=== PATIENT | male | born 1995 | race Caucasian/White ===

== ENCOUNTER 2024-11-14 10:08 | Outpatient (CLI) | payer OTHER, SELFPAY ==
--- OUTSIDE RECORDS SUMMARY | 2024-11-14 11:17 | XMS_ITS | Referral Summary ---
Author Organization [address] Address [address] [place] [address] Care Team Providers Care Dye Boarding Machine Operator Name Role Phone No, Physician Primary Care Provider Encounters Date Type Department Care Team Description 10/12/2024 [facility]phone [facility] [address] [address] Deana Melgar NP Reschedule Appointment from Last 3 Months Allergies No known active allergies Medications amLODIPine (NORVASC) 10 mg tablet 4 Active chlorthalidone (HYGROTON) 25 mg tablet Take 1 tablet (25 mg total) by mouth daily with breakfast 4 Active rosuvastatin (CRESTOR) 10 mg tablet 4 Active albuterol HFA (PROVENTIL HFA,VENTOLIN HFA,PROAIR HFA) 90 mcg/actuation inhaler INHALE 2 PUFFS INTO THE LUNGS EVERY 4 HOURS NEEDED FOR WHEEZING OR SHORTNESS OF BREATH 4 Active montelukast (SINGULAIR) 10 mg tablet Take 1 tablet (10 mg total) by mouth daily 4 Active Active Problems No known active problems Social History Tobacco Use Types Packs/Day Years Used Date Smoking Tobacco: Every Day E-cigarettes Smokeless Tobacco: Never Tobacco Cessation:Ready to Q uit: Not Asked Sex and Gender Information Value Date Recorded Sex Assigned at Not on file 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 Gender Identity Not on file Sexual Orientation Not on file Last Filed Vital Signs Vital Sign Reading Time Taken Comments Blood Pressure 154/94 07/21/2024 7:02 PM FLATWORK FEEDER Pulse 100 07/21/2024 7:02 PM FLATWORK FEEDER Temperature 36.7 C (98 F) 07/21/2024 7:02 PM FLATWORK FEEDER Respiratory Rate 16 07/21/2024 7:02 PM FLATWORK FEEDER Oxygen Saturation 98% 07/21/2024 7:02 PM FLATWORK FEEDER Inhaled Oxygen Concentration - - Weight 127 kg (280 lb) 07/21/2024 7:02 PM FLATWORK FEEDER Height 177.8 cm (5' 10 ) 07/21/2024 7:02 PM FLATWORK FEEDER Body Mass Index 40.18 07/21/2024 7:02 PM FLATWORK FEEDER Plan of Treatment Not on file Insurance [facility] CHOICE PLUS Care Teams Dye Boarding Machine Operator Relationship Specialty Start Date End Date No, Physician PCP - General 05/10/24
--- OUTSIDE RECORDS SUMMARY | 2024-11-14 11:17 | XMS_ITS | Clinical Summary ---
Author Organization [address] Address [address] [place] [address] [place] [address] Care Team Providers Care Economic Development Coordinator Name Role Phone No, Physician Primary Care Provider [phone] Allergies No known active allergies Medications amLODIPine [...] Active Active Problems No known active problems Encounters Date Type Department Care Team Description 10/12/2024 Telephone [facility] [address] [place] [address] Deana Melgar NP Reschedule Appointment from Last 3 Months Medical History Medical History Date Comments Hypertension Asthma Hyperlipidemia Social History Tobacco Use Types Packs/Day Years Used Date Smoking Tobacco: Every Day E-cigarettes Smokeless Tobacco: Never Tobacco Cessation:Ready to Q uit: Not Asked Sex and Gender Information Value Date Recorded Sex Assigned at Not on file 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:52 PM HEAD OF VISUAL MERCHANDISING Gender Identity Not on file Sexual Orientation Not on file Obstetrics History Last Filed Vital Signs Vital Sign Reading Time Taken Comments Blood Pressure 154/94 07/21/2024 7:02 PM HEAD OF VISUAL MERCHANDISING Pulse 100 07/21/2024 7:02 PM HEAD OF VISUAL MERCHANDISING Temperature 36.7 C (98 F) 07/21/2024 7:02 PM HEAD OF VISUAL MERCHANDISING Respiratory Rate 16 07/21/2024 7:02 PM HEAD OF VISUAL MERCHANDISING Oxygen Saturation 98% 07/21/2024 7:02 PM HEAD OF VISUAL MERCHANDISING Inhaled Oxygen Concentration - - Weight 127 kg (280 lb) 07/21/2024 7:02 PM HEAD OF VISUAL MERCHANDISING Height 177.8 cm (5' 10 ) 07/21/2024 7:02 PM HEAD OF VISUAL MERCHANDISING Body Mass Index 40.18 07/21/2024 7:02 PM HEAD OF VISUAL MERCHANDISING Plan of Treatment Health Maintenance Due Date Last Done Comments Depression Screening 1995 Hepatitis C Screening 1995 HPV Vaccines (2 - Male 2-dos e series) 09/11/2010 03/11/2010 Regular Well Visit/Exam 18-64 2013 Pneumococcal vaccine <65 (1 of 2 - PCV) 2014 Influenza Vaccine (Season Ended) 2025 DTaP/Tdap/Td Vaccine (8 - Td or Tdap) 06/14/2028 06/14/2018, 03/11/2010, 06/23/2000, Additional history exists Hepatitis B Screening Completed 1995 , 1995, 1995, Additional history exists Varicella Vaccines Completed 03/11/2010, 01/20/1997 [place] [address] [facility] CHOICE PLUS Care Teams Economic Development Coordinator Relationship Specialty Start Date End Date No, Physician PCP - General 05/10/24
[2024-11-14 18:50] LABS: Basophils Absolute Auto 0.1 K/mm3 (0.0-0.1); Basophils Percent Auto 0.5 % (0.2-1.2); Eosinophils Absolute Auto 0.2 K/mm3 (0-0.3); Eosinophils Percent Auto 2.3 % (0-4.4); Hematocrit 47.1 % (42.0-52.0); Hemoglobin 16.1 g/dL (14.0-18.0); Immature Granulocyte Absolute 0.04 K/mm3 (0.00-0.031); Immature Granulocyte Percent A 0.4 % (0-0.5); Lymphocytes Absolute Auto 2.36 K/mm3 (0.9-3.2); Lymphocytes Percent Auto 25.1 % (18.3-44.2); Mean Corpuscular HGB Conc 34.2 g/dl (32-36); Mean Corpuscular Hemoglobin 28.4 pg (26-34); Mean Corpuscular Volume 83.2 fl (80-100); Monocytes Absolute Auto 0.7 K/mm3 (0.1-0.6); Monocytes Percent Auto 7.6 % (2.6-8.5); Neutrophils Percent Auto 64.1 % (45.5-73.1); Platelet Count Result 403 k/mm3 (150-375); Red Blood Count 5.66 M/mm3 (4.6-6.20); Red Cell Distribution Width 12.5 % (11.5-14.5); White Blood Count 9.4 K/mm3 (4.5-10.0)
[2024-11-14 19:54] LABS: Add Urine Microscopic? YES; Appearance Urine Clear (Clear); Bacteria Urine None Seen /hpf; Bilirubin Urine Negative (Negative); Blood Urine Negative (Negative); Color Urine Yellow (Yellow); Glucose Urine UA 3+ mg/dL (Negative); Hyaline Casts Urine Present /lpf; Ketones Urine Negative (Negative); Leukocyte Esterase Ur Negative LEU/UL (Negative); Nitrate Urine Negative (Negative); Protein Urine Trace mg/dL (Negative); RBC Urine 0-2 /hpf (0-2); Specific Grav Ur 1.027 (1.001-1.035); Squamous Epithelial Cell Urine None Seen /hpf (Few); Urobilinogen Urine 0.2 mg/dL (<2.0)
[2024-11-14 20:29] LABS: Alanine Aminotransferase 153 U/L (6-50); Albumin Level 4.8 g/dL (3.5-5.1); Alkaline Phosphatase 189 U/L (38-126); Anion Gap 15 mmol/L (4-12); Aspartate Amino Transferase 91 U/L (17-59); Bilirubin,Total 0.7 mg/dL (0.2-1.3); Blood Urea Nitrogen 13 mg/dL (9-20); Calcium 9.7 mg/dL (8.4-10.2); Carbon Dioxide 28 mmol/L (22-30); Chloride 96 mmol/L (98-107); Cholesterol 162 mg/dL (0-200); Estimated Glomerular Filt Rate > 60; Glucose 209 mg/dL (65-110); HDL Direct 37 mg/dL; Potassium 3.2 mmol/L (3.4-5.0); Sodium 139 mmol/L (137-145); Triglycerides 274 mg/dL (<150)
[2024-11-14 20:39] LABS: LDL Cholesterol Direct 76 mg/dL
[2024-11-14 21:44] LABS: Hemoglobin A1C 9.4 % (<5.7)
[2024-11-14 21:51] LABS: Creatinine Urine 168.3 mg/dL
[2024-11-14 22:04] LABS: MALB Creatinine Ratio 39.5 mg/g (0-30); Microalbumin Urine Random 66.5 mg/L (0-16.7)
== END 2024-11-14 10:09 | disposition home or self-care (01) ==
LOC: ANHBWCLAB 10:09
PROVIDERS: PCP Nurse Practitioner Adult Health; Visit Provider Nurse Practitioner Adult Health
DX: I10 Essential (primary) hypertension (principal); R32 Unspecified urinary incontinence
CPT/HCPCS: 36415; 80053; 80061; 81001; 82043; 82565; 83036; 83735; 85025

== ENCOUNTER 2024-11-21 08:09 | Outpatient (CLI) | payer OTHER, SELFPAY ==
--- NOTE | ~2024-11-21 | US_ITS ---
Limited Abdominal Sonogram: Real-time sonographic imaging of the right upper quadrant was performed. Clinical History: Abnormal serum enzyme levels Findings: The liver appears echogenic, with no evidence of mass lesion or bile duct dilatation. Main portal vein demonstrates normal direction of flow. The gallbladder is well distended, and appears no rmal with no evidence of gallstone or wall thickening. The common bile duct measures 4 mm. The visua lized pancreas, aorta, and IVC are unremarkable. Right kidney unremarkable. Impression: Diffuse fatty infiltration of the liver. Reviewed, dictated and finalized at location M. Impression: Diffuse fatty infiltration of the liver.
== END 2024-11-21 08:10 | disposition home or self-care (01) ==
LOC: MICIMG 08:09
PROVIDERS: PCP Nurse Practitioner Adult Health; Visit Provider Nurse Practitioner Adult Health
DX: R74.8 Abnormal levels of other serum enzymes (principal); K76.0 Fatty (change of) liver, not elsewhere classified
CPT/HCPCS: 76705

== ENCOUNTER 2024-11-28 11:04 | Outpatient (CLI) | payer OTHER, SELFPAY ==
--- OUTSIDE RECORDS SUMMARY | 2024-11-28 13:00 | XMS_ITS | Referral Summary ---
Author Organization [address] Address [address] [place] [address] Care Team Providers Care Natural Gas Trader Name Role Phone No, Physician Primary Care Provider [phone] Encounters Date Type Department Care Team Description 10/12/2024 Telephone [facility] [address] [address] Deana Melgar NP Reschedule Appointment [...] on file 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:52 PM SALES ORDER CLERK Gender Identity Not on file Sexual Orientation Not on file Last Filed Vital Signs Vital Sign Reading Time Taken Comments Blood Pressure 154/94 07/21/2024 7:02 PM SALES ORDER CLERK Pulse 100 07/21/2024 7:02 PM SALES ORDER CLERK Temperature 36.7 C (98 F) 07/21/2024 7:02 PM SALES ORDER CLERK Respiratory Rate 16 07/21/2024 7:02 PM SALES ORDER CLERK Oxygen Saturation 98% 07/21/2024 7:02 PM SALES ORDER CLERK Inhaled Oxygen Concentration - - Weight 127 kg (280 lb) 07/21/2024 7:02 PM SALES ORDER CLERK Height 177.8 cm (5' 10 ) 07/21/2024 7:02 PM SALES ORDER CLERK Body Mass Index 40.18 07/21/2024 7:02 PM SALES ORDER CLERK Plan of Treatment Not on file Insurance [facility] CHOICE PLUS [facility] HMO/PPO Address: [facility] [address] [place] [address] Care Teams Natural Gas Trader Relationship Specialty Start Date End Date No, Physician PCP - General 05/10/24
--- OUTSIDE RECORDS SUMMARY | 2024-11-28 13:00 | XMS_ITS | Clinical Summary ---
Author Organization [address] Address [address] [place] [address] [place] [address] Care Team Providers Care Rig Operator Name Role Phone No, Physician Primary Care Provider [phone] Allergies No known active allergies Medications amLODIPine [...] Care Team Description 10/12/2024 Telephone [facility] [address] [place] [address] Deana Melgar NP Reschedule Appointment from Last 3 Months Medical History Medical History Date Comments Hypertension Asthma Hyperlipidemia Social History Tobacco Use Types Packs/Day Years Used Date Smoking Tobacco: Every Day E-cigarettes Smokeless Tobacco: Never Tobacco Cessation:Ready to Q uit: Not Asked Sex and Gender Information Value Date Recorded Sex Assigned at Not on file 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:52 PM PLUCK TRIMMER Gender Identity Not on file Sexual Orientation Not on file Obstetrics History Last Filed Vital Signs Vital Sign Reading Time Taken Comments Blood Pressure 154/94 07/21/2024 7:02 PM PLUCK TRIMMER Pulse 100 07/21/2024 7:02 PM PLUCK TRIMMER Temperature 36.7 C (98 F) 07/21/2024 7:02 PM PLUCK TRIMMER Respiratory Rate 16 07/21/2024 7:02 PM PLUCK TRIMMER Oxygen Saturation 98% 07/21/2024 7:02 PM PLUCK TRIMMER Inhaled Oxygen Concentration - - Weight 127 kg (280 lb) 07/21/2024 7:02 PM PLUCK TRIMMER Height 177.8 cm (5' 10 ) 07/21/2024 7:02 PM PLUCK TRIMMER Body Mass Index 40.18 07/21/2024 7:02 PM PLUCK TRIMMER Plan of Treatment Health Maintenance Due Date [...] Varicella Vaccines Completed 03/11/2010, 01/20/1997 [place] [address] [facility] CHOICE PLUS [facility] HMO/PPO Address: [facility] [address] [place] [address] Care Teams Rig Operator Relationship Specialty Start Date End Date No, Physician PCP - General 05/10/24
[2024-11-28 22:42] LABS: Anion Gap 11 mmol/L (4-12); Blood Urea Nitrogen 8 mg/dL (9-20); Calcium 9.9 mg/dL (8.4-10.2); Carbon Dioxide 25 mmol/L (22-30); Chloride 102 mmol/L (98-107); Estimated Glomerular Filt Rate > 60; Glucose 86 mg/dL (65-110); Potassium 4.5 mmol/L (3.4-5.0); Sodium 138 mmol/L (137-145)
== END 2024-11-28 11:05 | disposition home or self-care (01) ==
PROVIDERS: PCP Nurse Practitioner Adult Health; Visit Provider Nurse Practitioner Adult Health
DX: E87.6 Hypokalemia (principal)
CPT/HCPCS: 36415; 80048

== ENCOUNTER 2025-01-02 13:00 | Outpatient (RCR) | payer OTHER, SELFPAY | END 2025-02-20 11:07 | disposition home or self-care (01) | LOC: ANHDMC 13:00 | PROVIDERS: PCP Nurse Practitioner Adult Health; Visit Provider Nurse Practitioner Adult Health | DX: E11.9 Type 2 diabetes mellitus without complications (principal); Z71.89 Other specified counseling | CPT/HCPCS: G0108 ==

== ENCOUNTER 2025-03-06 11:20 | Outpatient (CLI) | payer OTHER, SELFPAY ==
--- OUTSIDE RECORDS SUMMARY | 2025-03-06 11:44 | XMS_ITS | Referral Summary ---
Author Organization [address] Address [address] [place] [address] [place] [address] Care Team Providers Care Casting Assistant Name Role Phone No, Physician Primary Care Provider [phone] Allergies No known active allergies Medications amLODIPine [...] on file 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:52 PM ELECTRIC MOTOR REPAIR SUPERVISOR Gender Identity Not on file Sexual Orientation Not on file Last Filed Vital Signs Vital Sign Reading Time Taken Comments Blood Pressure 154/94 07/21/2024 7:02 PM ELECTRIC MOTOR REPAIR SUPERVISOR Pulse 100 07/21/2024 7:02 PM ELECTRIC MOTOR REPAIR SUPERVISOR Temperature 36.7 C (98 F) 07/21/2024 7:02 PM ELECTRIC MOTOR REPAIR SUPERVISOR Respiratory Rate 16 07/21/2024 7:02 PM ELECTRIC MOTOR REPAIR SUPERVISOR Oxygen Saturation 98% 07/21/2024 7:02 PM ELECTRIC MOTOR REPAIR SUPERVISOR Inhaled Oxygen Concentration - - Weight 127 kg (280 lb) 07/21/2024 7:02 PM ELECTRIC MOTOR REPAIR SUPERVISOR Height 177.8 cm (5' 10) 07/21/2024 7:02 PM ELECTRIC MOTOR REPAIR SUPERVISOR Body Mass Index 40.18 07/21/2024 7:02 PM ELECTRIC MOTOR REPAIR SUPERVISOR Plan of Treatment Not on file Insurance [facility] CHOICE PLUS Care Teams Casting Assistant Relationship Specialty Start Date End Date No, Physician PCP - General 05/10/24
--- OUTSIDE RECORDS SUMMARY | 2025-03-06 11:44 | XMS_ITS | Clinical Summary ---
Author Organization [address] Address [address] [place] [address] [place] [address] Care Team Providers Care Boatswains Mate Name Role Phone No, Physician Primary Care Provider [phone] Allergies No known active allergies Medications amLODIPine [...] Active Active Problems No known active problems Medical History Medical History Date Comments Hypertension Asthma Hyperlipidemia Social History Tobacco Use Types Packs/Day Years Used Date Smoking Tobacco: Every Day E-cigarettes Smokeless Tobacco: Never Tobacco Cessation:Ready to Q uit: Not Asked Sex and Gender Information Value Date Recorded Sex Assigned at Not on file 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:52 PM TRAY PACKER Gender Identity Not on file Sexual Orientation Not on file Obstetrics History Last Filed Vital Signs Vital Sign Reading Time Taken Comments Blood Pressure 154/94 07/21/2024 7:02 PM TRAY PACKER Pulse 100 07/21/2024 7:02 PM TRAY PACKER Temperature 36.7 C (98 F) 07/21/2024 7:02 PM TRAY PACKER Respiratory Rate 16 07/21/2024 7:02 PM TRAY PACKER Oxygen Saturation 98% 07/21/2024 7:02 PM TRAY PACKER Inhaled Oxygen Concentration - - Weight 127 kg (280 lb) 07/21/2024 7:02 PM TRAY PACKER Height 177.8 cm (5' 10) 07/21/2024 7:02 PM TRAY PACKER Body Mass Index 40.18 07/21/2024 7:02 PM TRAY PACKER Plan of Treatment Health Maintenance Due Date Last Done Comments Depression Screening 1995 Hepatitis C Screening 1995 HPV Vaccines (2 - Male 2-dos e series) 09/11/2010 03/11/2010 Regular Well Visit/Exam 18-64 2013 Pneumococcal vaccine <65 (1 of 2 - PCV) 2014 Influenza Vaccine (#1) 2025 DTaP/Tdap/Td Vaccine (8 - Td or Tdap) 06/14/2028 06/14/2018, 03/11/2010, 06/23/2000, Additional history exists Hepatitis B Screening Completed 1995 , 1995, 1995, Additional history exists Varicella Vaccines Completed 03/11/2010, 01/20/1997 Insurance [facility] CHOICE PLUS [facility] HMO/PPO Address: [facility] [address] [place] [address] Care Teams Boatswains Mate Relationship Specialty Start Date End Date No, Physician PCP - General 05/10/24
[2025-03-06 19:14] LABS: Alanine Aminotransferase 39 U/L (6-50); Albumin Level 4.6 g/dL (3.5-5.1); Alkaline Phosphatase 105 U/L (38-126); Anion Gap 10 mmol/L (4-12); Aspartate Amino Transferase 73 U/L (17-59); Bilirubin,Total 0.6 mg/dL (0.2-1.3); Blood Urea Nitrogen 7 mg/dL (9-20); Calcium 9.8 mg/dL (8.4-10.2); Carbon Dioxide 24 mmol/L (22-30); Chloride 103 mmol/L (98-107); Cholesterol 91 mg/dL (0-200); Estimated Glomerular Filt Rate > 60; Glucose 92 mg/dL (65-110); HDL Direct 29 mg/dL; Potassium 4.3 mmol/L (3.4-5.0); Sodium 137 mmol/L (137-145); Total Protein 8.2 g/dL (6.3-8.2); Triglycerides 81 mg/dL (<150)
[2025-03-06 19:26] LABS: Hemoglobin A1C 5.2 % (<5.7)
[2025-03-06 19:28] LABS: MALB Creatinine Ratio 5.2 mg/g (0-30)
== END 2025-03-06 11:21 | disposition home or self-care (01) ==
LOC: ANHBWCLAB 11:21
PROVIDERS: PCP Nurse Practitioner Adult Health; Visit Provider Nurse Practitioner Adult Health
DX: I10 Essential (primary) hypertension (principal); E11.9 Type 2 diabetes mellitus without complications
CPT/HCPCS: 36415; 80053; 80061; 82043; 82565; 83036

== ENCOUNTER 2025-03-27 10:31 | Outpatient (RCR) | payer OTHER, SELFPAY | END 2025-06-12 11:39 | disposition home or self-care (01) | LOC: ANHDMC 10:31 | PROVIDERS: PCP Nurse Practitioner Adult Health; Visit Provider Nurse Practitioner Adult Health | DX: E11.9 Type 2 diabetes mellitus without complications (principal); Z71.89 Other specified counseling | CPT/HCPCS: G0108 ==

== ENCOUNTER 2025-07-10 09:06 | Outpatient (RCR) | payer OTHER, SELFPAY | END 2025-07-11 16:34 | disposition home or self-care (01) | LOC: ANHDMC 09:06 | PROVIDERS: PCP Nurse Practitioner Adult Health; Visit Provider Nurse Practitioner Adult Health | DX: E11.9 Type 2 diabetes mellitus without complications (principal); Z71.89 Other specified counseling; Z71.3 Dietary counseling and surveillance | CPT/HCPCS: G0108 ==